=== PATIENT | female | born 1955 | race Caucasian/White ===

== ENCOUNTER 2017-06-06 19:42 | Emergency (ER) | payer SELFPAY ==
[2017-06-06 19:47] VITALS: BP 158/74; PULSE 84; TEMP 97; BMI 32.3
--- NOTE | 2017-06-06 20:22 | PDOC ---
History of Present Illness - General Chief Complaint: Injury Stated Complaint: FALL LEFT ARM INJURY - History of Present Illness Initial Comments: 06/06/17 20:05 CHIEF COMPLAINT: wrist pain HISTORY OF PRESENT ILLNESS: 62 yo F with no PMH presents to fast track s/p fall. PAtient states she was walking down stairs when she tripped and fell onto her left hand and wrist, but she is unsure exactly how she landed. She reports a bruise on her left knee and that she also "hit the face a little but there's no pain or anything there." She denies any LOC, weakness, blurry vision , or vomiting. PAST MEDICAL HISTORY: Denies past medical history FAMILY HISTORY: Denies SOCIAL HISTORY: Denies tobacco, alcohol, illicit drug use. SURGICAL HISTORY: Denies ALLERGIES: No known drug allergies REVIEW OF SYSTEMS General/Constitutional: Denies fever or chills. Denies weakness, weight change. HEENT: Denies change in vision. Denies ear pain or discharge. Denies sore throat. Cardiovascular: Denies chest pain or shortness of breath. Respiratory: Denies cough, wheezing, or hemoptysis. Gastrointestinal: Denies nausea, vomiting, diarrhea or constipation. Denies rectal bleeding. Genitourinary: Denies dysuria, frequency, or change in urination. Musculoskeletal: Pain to left wrist. Denies neck or back pain. Skin: Bruise to left knee. PHYSICAL EXAM General Appearance: Well-appearing, appropriately dressed. No apparent distress. HEENT: EOMI, PERRLA, normal ENT inspection, normal voice, TMs normal, pharynx normal. No conjunctival pallor. No photophobia, scleral icterus. Neck: No midline tenderness to cervical spine. Supple. Trachea midline. No tenderness, rigidity, carotid bruit, stridor, lymphadenopathy, or thyromegaly. Respiratory/Chest: Lungs CTAB. Cardiovascular: RRR. S1, S2. Gastrointestinal/Abdominal: Normal bowel sounds. Abdomen soft, non-distended. No tenderness or rebound tenderness. No organomegaly, pulsatile mass, guarding , hernia, hepatomegaly, splenomegaly. Musculoskeletal/Extremities: Swelling to L wrist with limited ROM. Neurovascularly intact, pulses 2+ b/l, no loss of sensation. No midline tenderness to thoracic or lumbar spine. FROM of all other extremities, normal capillary refill. No tenderness to any other extremities, pedal edema, swelling , erythema or deformity. Integumentary: Developing hematoma just inferior to L knee. Appropriate color, dry, warm. No cyanosis, erythema, jaundice or rash Neurologic: project scientist II-XII intact. Fully oriented, alert. Appropriate mood/affect. Motor strength 5/5. No appreciable EOM palsy, facial droop or sensory deficit. Past History - Past Medical History Allergies/Adverse Reactions: Allergies Allergy/AdvReac Type Severity Reaction Status Date / Time No Known Drug Allergies Allergy Verified 06/06/17 19:47 Home Medications: Ambulatory Orders Acetaminophen [Tylenol] 325 mg PO PRN 06/03/16 Naproxen [Naprosyn -] 500 mg PO BID #14 tablet 06/06/17 Oxycodone HCl/Acetaminophen [Percocet 5-325 mg Tablet] 1 tab PO Q6H #16 tablet MDD 4 06/06/17 Anemia: No Asthma: No Cancer: No Cardiac Disorders: No CVA: No COPD: No CHF: No Dementia: No Diabetes: No GI Disorders: No Disorders: No HTN: No Hypercholesterolemia: No Liver Disease: No Seizures: No Thyroid Disease: No - Psycho/Social/Smoking Cessation Hx Anxiety: No Suicidal Ideation: No Smoking History: Never smoked Have you smoked in the past 12 months: No Hx Alcohol Use: No Drug/Substance Use Hx: No Substance Use Type: None *Physical Exam - Vital Signs Last Vital Signs Temp Pulse Resp BP Pulse Ox 97 F L 84 18 158/74 99 06/06/17 19:45 06/06/17 19:45 06/06/17 19:45 06/06/17 19:45 06/06/17 19:45 Medical Decision Making - Medical Decision Making 06/06/17 20:30 62 yo F with no PMH presents to fast track s/p fall. -Left hand/wrist x-ray Patient declines pain medication, states she already took Motrin at home and has little pain now. -X-ray positive for displaced comminuted distal radial fracture. Discussed case with attending ortho MD Ventura. Patient will require surgical follow up. Patient splinted with orthoglass. Percocet rx sent to pharm. Advised patient to take medication as prescribed and follow up with orthopedics tomorrow. Advised patient of signs and symptoms for return to ED. Patient verbalized understanding and agrees to plan. *DC/Admit/Observation/Transfer Diagnosis at time of Disposition: Wrist fracture, left Qualifiers: Encounter type: initial encounter Fracture type: closed Qualified Code(s): S62.102A - Fracture of unspecified carpal bone, left wrist, initial encounter for closed fracture - Discharge Dispostion Disposition: HOME Condition at time of disposition: Stable Admit: No - Prescriptions Prescriptions: Naproxen [Naprosyn -] 500 mg PO BID #14 tablet Oxycodone HCl/Acetaminophen [Percocet 5-325 mg Tablet] 1 tab PO Q6H #16 tablet MDD 4 - Referrals Referrals: Dayana Up MD [Primary Care Provider] - Maldonado Ventura MD [Staff Physician] - - Patient Instructions Printed Discharge Instructions: DI for Wrist Fracture Additional Instructions: Please take medications as prescribed. As discussed, you must follow up with Dr. Ventura tomorrow; he is expecting you. If you develop any loss of sensation or change in color to your fingers, increased swelling to the wrist, or any new or worsening symptoms, please return to the ER.
== END 2017-06-06 22:04 | disposition home or self-care (01) ==
LOC: JERFT 19:42
PROC: 2W3DX1Z Immobilization of Left Lower Arm using Splint (ICD-10-PCS; principal; 2017-06-06)
DX: S52.592A Other fractures of lower end of left radius, initial encounter for closed fracture (principal); S80.02XA Contusion of left knee, initial encounter; W10.8XXA Fall (on) (from) other stairs and steps, initial encounter; Y93.89 Activity, other specified; Y92.89 Other specified places as the place of occurrence of the external cause
CPT/HCPCS: 73110-TC-LT; 73130-TC-LT; 99281-25

== ENCOUNTER 2017-06-09 06:40 | Day surgery (SDC) | payer OTHER ==
[2017-06-09 07:42] VITALS: BMI 31.2
--- NOTE | 2017-06-09 07:48 | PDOC ---
History of Present Illness - General History Source: Patient Exam Limitations: No Limitations - History of Present Illness Initial Comments: 06/09/17 07:48 The patient is a 62 year old female, with no significant past medical history who was sent to the emergency department by , for pre-op admission for a left wrist ORIF. The DOI was 06/06/17 when the patient reports while walking down stairs tripping, falling, and landing on her left hand/wrist. The patient was last seen on 06/06/17, discharged home after x-rays revealed a displaced comminuted distal radius fracture, and advised to follow up with for further treatment. She denies recent fevers, chills, headache or dizziness. She denies recent nausea, vomit, diarrhea or constipation. She denies recent dysuria, frequency, urgency or hematuria. She denies recent chest pain or shortness of breath. Allergies: NKA Past surgical history: None reported. Social history: Nonsmoker. Denies EtOH use and recreational drug use. Orthopedist: <Praful Gastelum - Last Filed: 06/09/17 08:11> <Rodrigo Mendez - Last Filed: 06/09/17 08:34> - General Chief Complaint: Injury Stated Complaint: FALL/LT ARM INJURY Time Seen by Provider: 06/09/17 07:25 Past History <Praful Gastelum - Last Filed: 06/09/17 08:11> - Past Medical History Anemia: No Asthma: No Cancer: No Cardiac Disorders: No CVA: No COPD: No CHF: No Dementia: No Diabetes: No GI Disorders: No Disorders: No HTN: No Hypercholesterolemia: No Liver Disease: No Seizures: No Thyroid Disease: No Other medical history: DENIES - Psycho/Social/Smoking Cessation Hx Anxiety: No Suicidal Ideation: No Smoking History: Never smoked Have you smoked in the past 12 months: No Hx Alcohol Use: No Drug/Substance Use Hx: No Substance Use Type: None <Rodrigo Mendez - Last Filed: 06/09/17 08:34> - Past Medical History Allergies/Adverse Reactions: Allergies Allergy/AdvReac Type Severity Reaction Status Date / Time No Known Drug Allergies Allergy Verified 06/09/17 07:14 Home Medications: Ambulatory Orders Acetaminophen [Tylenol] 325 mg PO PRN PRN 06/03/16 Review of Systems - Review of Systems Able to Perform ROS?: Yes Comments:: 06/09/17 07:48 GENERAL/CONSTITUTIONAL: No fever or chills. No weakness. HEAD, EYES, EARS, NOSE AND THROAT: No change in vision. No ear pain or discharge. No sore throat. CARDIOVASCULAR: No chest pain or shortness of breath. RESPIRATORY: No cough, wheezing, or hemoptysis. GASTROINTESTINAL: No nausea, vomiting, diarrhea or constipation. GENITOURINARY: No dysuria, frequency, or change in urination. MUSCULOSKELETAL: +Left wrist pain. No joint or muscle swelling or pain. No neck or back pain. SKIN: No rash NEUROLOGIC: No headache, vertigo, loss of consciousness, or change in strength/ sensation. ENDOCRINE: No increased thirst. No abnormal weight change. HEMATOLOGIC/LYMPHATIC: No anemia, easy bleeding, or history of blood clots. ALLERGIC/IMMUNOLOGIC: No hives or skin allergy. <Praful Gastelum - Last Filed: 06/09/17 08:11> *Physical Exam - Vital Signs Last Vital Signs Temp Pulse Resp BP Pulse Ox 98.1 F 77 18 133/75 98 06/09/17 07:11 06/09/17 07:11 06/09/17 07:11 06/09/17 07:11 06/09/17 07:11 - Physical Exam Comments: 06/09/17 08:11 GENERAL: Awake, alert, and fully oriented, in no acute distress HEAD: No signs of trauma EYES: PERRLA, EOMI, sclera anicteric, conjunctiva clear ENT: Auricles normal inspection, hearing grossly normal, nares patent, oropharynx clear without exudates. Moist mucosa NECK: Normal ROM, supple, no lymphadenopathy, JVD, or masses LUNGS: Breath sounds equal, clear to auscultation bilaterally. No wheezes, and no crackles HEART: Regular rate and rhythm, normal S1 and S2, no murmurs, rubs or gallops ABDOMEN: Soft, nontender, normoactive bowel sounds. No guarding, no rebound. No masses EXTREMITIES: Splint on left wrist. Neurovascularly intact with 2+ pulse. Swelling to the left wrist and mild deformity. No open wounds. No erythema or warmth. No loss of sensation in that area. Older looking bruise in the left knee cap. NEUROLOGICAL: Cranial nerves II through XII grossly intact. Normal speech, normal gait SKIN: Warm, Dry, normal turgor, no rashes or lesions noted. <Praful Gastelum - Last Filed: 06/09/17 08:11> - Vital Signs Last Vital Signs Temp Pulse Resp BP Pulse Ox 98.1 F 77 18 133/75 98 06/09/17 07:11 06/09/17 07:11 06/09/17 07:11 06/09/17 07:11 06/09/17 07:11 <Rodrigo Mendez - Last Filed: 06/09/17 08:34> Medical Decision Making - Medical Decision Making 06/09/17 08:29 62yo F presents to ED for admission to OR for surgical management of L radius fx by Dr. Maldonado Ventura. Spoke with Dr. Ventura on the phone who states pt has completed her pre-op and can be admitted to his service. Pt is asymptomatic. -admit to Dr. Ventura 06/09/17 08:34 <Rodrigo Mendez - Last Filed: 06/09/17 08:34> *DC/Admit/Observation/Transfer - Attestations Scribe Attestion: 06/09/17 07:49 Documentation prepared by Praful Gastelum, acting as certified ophthalmic medical technician for Rodrigo Mendez MD. <Praful Gastelum - Last Filed: 06/09/17 08:11> - Discharge Dispostion Admit: Yes - Attestations Physician Attestion: 06/09/17 08:33 I, Dr. Rodrigo Mendez MD, attest that this document has been prepared under my direction and personally reviewed by me in its entirety. I further attest, that it accurately reflects all work, treatment, procedures and medical decision -making performed by me. <Rodrigo Mendez - Last Filed: 06/09/17 08:34> Diagnosis at time of Disposition: Wrist fracture, left Qualifiers: Encounter type: subsequent encounter - Discharge Dispostion Condition at time of disposition: Stable - Referrals Referrals: Dayana Up MD [Primary Care Provider] -
--- NOTE | 2017-06-09 08:53 | HP ---
[facility] - Chief Complaint Chief Complaint: left wrist fx - Past Medical History Allergies/Adverse Reactions: Allergies Allergy/AdvReac Type Severity Reaction Status Date / Time No Known Drug Allergies Allergy Verified 06/09/17 07:14 - Current Medications Current Medications: Home Medications Medication Instructions Recorded Hydrocodone/Acetaminophen [[place] 1 each PO Q6H PRN #40 tablet MDD 4 06/09/17 5-325 Tablet] Satellite Physical Exam - Physical Examination General Appearance: Well Nourished, Well Developed, Alert & Oriented x3 ENT: Clear Lung: Normal air movement Heart: Regular rate & rhythm Extremities: Other (left wrist- +ttp, + swelling, splint intact, nvi xrays shoe displaced distal radius fx) Neurological: Intact, Alert, Oriented [facility]ellite Impression/Plan - Impression/Plan Impression: left distal radius fx Operative Procedure: left distal radius orif Date to be Performed: 06/09/17
[2017-06-09] MEDS ORDERED: ROPIVACAINE HCL 0.5% 30ML VIAL ONE (08:58)
[2017-06-09] MEDS ORDERED: MIDAZOLAM HCL 2 MG/2 ML SINGLE DOSE VIAL ONE ×2 (08:59)
[2017-06-09] MEDS ORDERED: PROPOFOL 20 ML ONE (09:41)
[2017-06-09] MEDS ORDERED: KETOROLAC TROMETHAMINE 30 MG/1 ML VIAL ONE (09:46)
[2017-06-09] MEDS ORDERED: ceFAZolin SODIUM 1 GM VIAL ONE (09:46)
[2017-06-09] MEDS ORDERED: DEXAMETHASONE SOD PHOSPHATE 4 MG/1 ML VIAL ONE (09:46)
[2017-06-09] MEDS ORDERED: ceFAZolin SODIUM 1 GM VIAL IVPB ONE (09:50)
[2017-06-09] MEDS ORDERED: ONDANSETRON 4 MG/2 ML VIAL IVPUSH PRN ×2 (10:43→11:30)
[2017-06-09] MEDS ORDERED: PROMETHAZINE HCL 25 MG/1 ML VIAL IVPUSH PRN (10:43)
[2017-06-09] MEDS ORDERED: oxyCODONE HCL 5 MG TABLET PO PRN ×2 (10:43→11:30)
[2017-06-09] MEDS ORDERED: LACTATED RINGERS SOLUTION 1,000 ML IV SCH ×2 (10:45→11:30)
[2017-06-09 11:50] VITALS: TEMP 97.7
[2017-06-09 16:00] VITALS: BP 134/72; PULSE 85
--- NOTE | 2017-06-14 17:24 | OP ---
DATE OF OPERATION: 06/09/2017 PREOPERATIVE DIAGNOSIS: Comminuted intraarticular displaced left distal radius fracture. POSTOPERATIVE DIAGNOSIS: Comminuted intraarticular displaced left distal radius fracture. PROCEDURE: Left distal radius open reduction internal fixation. SURGEON: Adeladie Lynn MD SPREADER OPERATOR AUTOMATIC: Maldonado Ventura MD SECOND SPREADER OPERATOR AUTOMATIC: LONA Yuan and ANESTHESIA: Left interscalene block and LMA anesthesia. DRAINS: None. COMPLICATIONS: None. SPECIMEN: None. BLOOD LOSS: None. BLOOD GIVEN: None. FLUID REPLACEMENT: 700 mL This patient is a 62-year-old female with a preoperative diagnosis of a comminuted intraarticular displaced left distal radius fracture. After understanding the potential risks, complications, alternatives, and benefits to surgery versus nonsurgical treatment, the patient elected to undergo this procedure. The patient was brought to the operating room. Peripheral IV placed. IV sedation given. Then 1 g of IV Ancef was given. A left interscalene block was performed. LMA anesthesia was induced. Left upper extremity was prepped and draped in a sterile fashion in a standard FCR approach. Incision was marked out with a marking pen. Left upper extremity was then elevated and exsanguinated with an Esmarch bandage, then tourniquet inflated to 250 mmHg. The incision was made with a No. 15 scalpel blade. Subcutaneous hemostasis was achieved with bipolar cautery, dissection done with Littler scissors. Weitlaner retractors were placed into the wound. The fascia was opened. Blunt dissection was done with my finger down to the pronator quadratus. Weitlaner retractors were placed deeper into the wound. The pronator was partially torn distally. The rest of it was taken off the bone with a fresh No. 15 scalpel blade. It was quite thin. Periosteal elevator was used to expose the volar aspect of the distal radius to the fracture site. A provisional reduction was performed. X-rays were taken. Next, two 0.045 K-wires were placed through the radial styloid, holding the fragments at length, and the K-wires were drilled into the cortex of the proximal aspect of the fracture site. X-rays were taken and overall looked quite good. Therefore, a standard hand innovation So low profile titanium left plate was placed on the volar aspect of the distal radius. It was put into position, held in place with K-wires. X-rays were taken documenting excellent position in the AP and lateral planes. Therefore, one 3.5-mm screw was placed. This was 13 mm in length. One partially-threaded distal locking screw of 20 mm in length was placed. X-rays were taken. Overall, everything looked quite good, the position of the fracture fragment, the position of the hardware, and the supracondylar support position of the distal screw. Next, 2 additional proximal 3.5-mm screws were placed 12 mm in length, and 5 distal partially-threaded locking screws were placed from 20-22 mm in length. All of the guides were removed. X-rays were taken in the AP and lateral planes. Overall, there was excellent position of the hardware in the subchondral support position and the fracture fragments. The area was copiously irrigated and washed out. The pronator quadratus could not be repaired. Then 4-0 undyed Vicryl was used to close the deep dermal layer. Final skin reapproximation was done with running subcuticular 4-0 Biosyn stitch. The area was then washed and dried and covered with Steri-Strips, 4 x 4's, fingers, Webril, and a 5-inch volar_ Ortho-Glass splint was applied, wrapped with a clean Coban. The tourniquet was taken down after a total tourniquet time of 50 minutes. There were no complications during the case. The patient tolerated the procedure quite well and was brought to the ambulatory recovery room in stable condition. Maldonado Ventura MD dictating for MD ADELAIDE Carmona M.D. [id number]
== END 2017-06-09 13:30 | disposition home or self-care (01) ==
LOC: JER 06:40 → JASUSAT 08:22
PROVIDERS: ATTEND Orthopaedic Surgery
PROC: 0PSJ04Z Reposition Left Radius with Internal Fixation Device, Open Approach (ICD-10-PCS; principal; 2017-06-09 09:00)
DX: S52.572A Other intraarticular fracture of lower end of left radius, initial encounter for closed fracture (principal); X58.XXXA Exposure to other specified factors, initial encounter; Y93.9 Activity, unspecified; Y92.9 Unspecified place or not applicable; Y99.9 Unspecified external cause status
CPT/HCPCS: 76000-TC; 94760; 99282-25

== ENCOUNTER 2023-02-13 08:49 | Inpatient (IN) | payer OTHER, BC ==
[2023-02-13 09:00] VITALS: BP 169/81; PULSE 82; RESP 18; TEMP 97; BMI 35.6
[2023-02-13] MEDS ORDERED: MAG HYDROX/AL HYDROX/SIMETH 30 ML UNIT-DOSE CUP PO ONE (09:25)
[2023-02-13] MEDS ORDERED: FAMOTIDINE 20 MG/50 ML IVPB 20 MG/50 ML MG IVPB ONE ×2 (09:25→09:41)
[2023-02-13] MEDS ORDERED: SODIUM CHLORIDE 0.9% 500 ML INFUS.BAG IV ONE (09:28)
[2023-02-13] MEDS ORDERED: ACETAMINOPHEN 1000 MG/100 ML BAG IVPB ONE (09:28)
[2023-02-13] MEDS ORDERED: MAG HYDROX/AL HYDROX/SIMETH 30 ML UNIT-DOSE CUP ONE (09:40)
[2023-02-13] MEDS ORDERED: ONDANSETRON 4 MG/2 ML VIAL IVPUSH ONE (09:40)
[2023-02-13] MEDS ORDERED: ACETAMINOPHEN INJECTION 100 ML IVPB ONE (09:40)
[2023-02-13] MEDS ORDERED: ACETAMINOPHEN 325 MG TABLET (FP) PO PRN (09:42)
[2023-02-13] MEDS ORDERED: SODIUM CHLORIDE 1,000 ML IV SCH (09:45)
[2023-02-13] MEDS ORDERED: HEPARIN NA (PORCINE) 5,000 UNITS/ML 1ML VIAL SQ SCH (10:00)
[2023-02-13] MEDS ORDERED: PIPERACILLIN/TAZOB 3.375 GM 3.375 GM in DEXTROSE 5%-WATER - 50 ML IVPB SCH ×2 (10:00→10:15)
[2023-02-13] MEDS ORDERED: PANTOPRAZOLE 20 MG TABLET PO SCH (10:00)
[2023-02-14] MEDS ORDERED: PANTOPRAZOLE SODIUM 40 MG VIAL IVPUSH SCH (10:00)
== END 2023-02-13 14:37 | disposition left against medical advice (07) | DRG 446 ==
LOC: JER 08:49 → JERBED 09:44
PROVIDERS: ADMIT Internal Medicine; ATTEND Internal Medicine
DX: K80.20 Calculus of gallbladder without cholecystitis without obstruction (principal); K21.9 Gastro-esophageal reflux disease without esophagitis; E80.6 Other disorders of bilirubin metabolism; Z53.29 Procedure and treatment not carried out because of patient's decision for other reasons
CPT/HCPCS: 36415; 71046-TC-FY; 76705-TC; 80053; 81003; 83690; 83735; 84484; 85025; 85610; 85730; 87086; 87186; 93005; 93010; 99285-25

== ENCOUNTER 2023-03-02 04:37 | Day surgery (SDC) | payer OTHER, BC ==
[2023-03-02 11:27] VITALS: BMI 34.8
[2023-03-02 14:30] VITALS: TEMP 98
[2023-03-02 14:32] VITALS: RESP 19
[2023-03-02 14:33] VITALS: BP 125/81; PULSE 61
== END 2023-03-02 13:05 | disposition home or self-care (01) ==
LOC: JASU-ENDO 04:37
PROVIDERS: ATTEND Student in an Organized Health Care Education/Training Program
PROC: 0DB78ZX Excision of Stomach, Pylorus, Via Natural or Artificial Opening Endoscopic, Diagnostic (ICD-10-PCS; 2023-03-02)
PROC: 0DB68ZX Excision of Stomach, Via Natural or Artificial Opening Endoscopic, Diagnostic (ICD-10-PCS; 2023-03-02)
PROC: 0DB98ZX Excision of Duodenum, Via Natural or Artificial Opening Endoscopic, Diagnostic (ICD-10-PCS; principal; 2023-03-02 12:00)
DX: K29.50 Unspecified chronic gastritis without bleeding (principal); K25.9 Gastric ulcer, unspecified as acute or chronic, without hemorrhage or perforation
CPT/HCPCS: 88305-TC; 88342-TC

== ENCOUNTER 2023-06-08 04:52 | Day surgery (SDC) | payer OTHER, BC ==
[2023-06-08 07:12] VITALS: BMI 31.2
[2023-06-08 08:24] VITALS: TEMP 98
[2023-06-08 08:46] VITALS: BP 136/66; PULSE 66; RESP 17
== END 2023-06-08 09:25 | disposition home or self-care (01) ==
LOC: JASU-ENDO 04:52
PROVIDERS: ATTEND Student in an Organized Health Care Education/Training Program
PROC: 0DB78ZX Excision of Stomach, Pylorus, Via Natural or Artificial Opening Endoscopic, Diagnostic (ICD-10-PCS; 2023-06-08)
PROC: 0DB68ZX Excision of Stomach, Via Natural or Artificial Opening Endoscopic, Diagnostic (ICD-10-PCS; 2023-06-08)
PROC: 0DB98ZX Excision of Duodenum, Via Natural or Artificial Opening Endoscopic, Diagnostic (ICD-10-PCS; principal; 2023-06-08 08:00)
DX: K29.50 Unspecified chronic gastritis without bleeding (principal)
CPT/HCPCS: 88305-TC; 88342-TC